=== PATIENT | female | born 1970 | race Caucasian/White ===

== ENCOUNTER 2017-03-20 16:22 | Emergency (ER) | payer SELFPAY ==
[~2017-03-20] VITALS: Ht 172.7 cm; Wt 54.4 kg
[~2017-03-20 16:22] MED LIST: ALPR0.255 PO; ESCI10TA PO
[2017-03-20] MEDS ORDERED: SERT50TA PO (16:41)
--- NOTE | 2017-03-20 17:45 | NUR ---
PT WAS CALLED TO ER ROOM FROM WAITING ROM, BUT NO RESPONSE. PT IS NOT IN WAITING ROOM.
--- NOTE | 2017-03-20 18:15 | NUR ---
PT WAS CALLED IN ER ROOM. NO RESPONSE.
== END 2017-03-20 18:48 | disposition left against medical advice (07) ==
LOC: ER 16:22
DX: Z53.21 Procedure and treatment not carried out due to patient leaving prior to being seen by health care provider (principal)
CPT/HCPCS: A4663

== ENCOUNTER 2017-03-22 19:34 | Emergency (ER) | payer SELFPAY ==
[~2017-03-22 19:34] MED LIST changes: +SERT50TA PO
--- NOTE | 2017-03-22 19:59 | NUR ---
PT DECIDED NOT TO BE SEEN.LWBT
== END 2017-03-22 20:22 | disposition left against medical advice (07) ==
LOC: ER 19:35
DX: Z53.21 Procedure and treatment not carried out due to patient leaving prior to being seen by health care provider (principal)

== ENCOUNTER 2022-01-13 19:53 | Emergency (ER) | payer BC ==
[~2022-01-13] VITALS: Ht 172.7 cm; Wt 64.4 kg
--- NOTE | 2022-01-13 21:29 | NUR ---
Pt not in waiting room.
[2022-01-13 22:42] LABS: HEMATOCRIT 38.7 % (31.2-41.9); PLATELET COUNT (AUTO) 330 K/uL (179-408)
[2022-01-13 22:49] LABS: CARBON DIOXIDE 36 mmol/L (21-32); CHLORIDE 97 mmol/L (98-107); CREATININE 0.9 mg/dL (0.6-1.3); GLUCOSE 110 mg/dL (74-106); POTASSIUM 3.4 mmol/L (3.5-5.1); UREA NITROGEN, BLOOD 11 mg/dL (7-18)
[2022-01-13 22:54] LABS: ALANINE AMINOTRANSFERASE 28 U/L (14-59); ALKALINE PHOSPHATASE 74 U/L (50-136); ASPARTATE AMINOTRANSFERASE 19 U/L (15-37); BILIRUBIN,DIRECT < 0.1 mg/dL (0.0-0.2); BILIRUBIN,TOTAL 0.3 mg/dL (0.2-1.0); TOTAL PROTEIN, SERUM 7.6 g/dL (6.4-8.2)
[2022-01-14 05:47] VITALS: BP 133/71
== END 2022-01-14 05:58 | disposition home or self-care (01) ==
LOC: ER 19:53
DX: S39.011A Strain of muscle, fascia and tendon of abdomen, initial encounter (principal); X58.XXXA Exposure to other specified factors, initial encounter; Y92.89 Other specified places as the place of occurrence of the external cause; G89.29 Other chronic pain; M54.50 Low back pain, unspecified; I10 Essential (primary) hypertension; Z88.0 Allergy status to penicillin
CPT/HCPCS: 36415; 76856; 83735; 85025; 87491; A4663